=== PATIENT | male | born 1960 | race Caucasian/White ===

== ENCOUNTER → 2017-01-24 | Outpatient (CLI) | payer OTHER ==
--- NOTE | 2017-01-24 14:48 | DIREP ---
PROCEDURE:XRAY KNEE 1-2 VWS-RT COMPARISON:None. INDICATIONS:RIGHT KNEE PAIN FINDINGS: BONES:Normal. JOINTS:Normal. SOFT TISSUES:Calcification anterior to the proximal patellar tendon and lower patella. OTHER:No additional findings. CONCLUSION: 1. Soft tissue calcifications in the anterior knee may represent bursal calcifications. 2. No osseous abnormalities. Dictated by: New Saenz M.D. on 01/24/2017 at 02:40 PM
== END | disposition home or self-care (01) ==
LOC: RAD 08:44
PROVIDERS: ATTEND Nurse Practitioner Family
DX: M71.461 Calcium deposit in bursa, right knee (principal)
CPT/HCPCS: 73560

== ENCOUNTER → 2017-02-01 | Outpatient (CLI) | payer OTHER ==
--- NOTE | 2017-02-01 13:26 | DIREP ---
PROCEDURE:MRI JOINT LOWER EXTREMITY-RT W/O COMPARISON:[facility], CR, XRAY KNEE 1-2 VWS-RT, 01/24/2017, 02:04 PM. INDICATIONS:KNEE PAIN TECHNIQUE:A complete multi-planar MRI was performed. FINDINGS: PATELLOFEMORAL:There is prepatellar irregular focus of high signal with surrounding low peripheral signal measuring 2.6 x 1.8 x 0.8 cm. These are consistent with the calcification seen in the prepatellar soft tissues along the inferior margin of the patella. It appears separate from the patella and patellar tendons. This could represent a region of fat necrosis or calcific bursitis. This full-thickness cartilage loss along the inferior midline trochlea surface with intermediate grade cartilage thinning involving the vertical ridge of the patella. The extensor mechanism and patellofemoral ligaments appear normal. CRUCIATE LIGAMENTS:Normal. COLLATERAL LIGAMENTS:Normal. MENISCI:Normal. MEDIAL COMPARTMENT:Normal hyaline cartilage. LATERAL COMPARTMENT :Normal hyaline cartilage. BONES:Normal. OTHER:No joint effusion or Ray cyst. CONCLUSION: 1. There is a prepatellar focus of low and high signal corresponding to calcification seen in the prepatellar soft tissues on the prior radiograph. Findings are consistent with either calcific bursitis or prepatellar fat necrosis. 2. Mild patellofemoral chondromalacia. 3. No meniscal tear. Dictated by: Caleb Rey MD on 02/01/2017 at 12:35 PM
== END | disposition home or self-care (01) ==
LOC: RAD 08:23
PROVIDERS: ATTEND Orthopaedic Surgery
DX: M22.41 Chondromalacia patellae, right knee (principal); M25.861 Other specified joint disorders, right knee
CPT/HCPCS: 73721

== ENCOUNTER → 2018-10-04 | Outpatient (CLI) | payer OTHER ==
[2018-10-04 19:02] LABS: HEMOGLOBIN 14.2 g/dL (13.9-16.3); MEAN CELL HGB 29.4 pg (26-34); MEAN CELL HGB CONCENTRATION 32.5 g/dL (33-37); MEAN CORP VOLUME 90.5 fL (78-100); MEAN PLATELET VOLUME 9.8 fL (7.8-11.0); RED CELL DISTRIBUTION WIDTH 13.8 % (11.5-14.5); WHITE BLOOD CELL 5.6 10^3/uL (4.5-11.0)
[2018-10-04 19:46] LABS: CALCIUM 9.2 mg/dL (8.4-10.5); CARBON DIOXIDE 26.3 mmol/L (20.0-32)
== END | disposition home or self-care (01) ==
LOC: NPLAB 17:57
PROVIDERS: ATTEND Nurse Practitioner Family
DX: Z12.5 Encounter for screening for malignant neoplasm of prostate (principal); E11.65 Type 2 diabetes mellitus with hyperglycemia; I10 Essential (primary) hypertension; E55.9 Vitamin D deficiency, unspecified
CPT/HCPCS: 36415; 80053; 80061; 82306; 83036; 83735; 84439; 84443; 84550; 85027

== ENCOUNTER → 2019-03-18 | Outpatient (CLI) | payer OTHER ==
[2019-03-18 13:12] LABS: HEMOGLOBIN 14.5 g/dL (13.9-16.3); MEAN CELL HGB 30.1 pg (26-34); MEAN CELL HGB CONCENTRATION 33.8 g/dL (33-37); MEAN PLATELET VOLUME 9.5 fL (7.8-11.0); RED CELL DISTRIBUTION WIDTH 13.9 % (11.5-14.5); WHITE BLOOD CELL 6.1 10^3/uL (4.5-11.0)
[2019-03-18 13:46] LABS: CALCIUM 9.9 mg/dL (8.4-10.5); CARBON DIOXIDE 23.1 mmol/L (20.0-32)
== END | disposition home or self-care (01) ==
LOC: NPLAB 12:32
PROVIDERS: ATTEND Nurse Practitioner Family
DX: E11.9 Type 2 diabetes mellitus without complications (principal); I10 Essential (primary) hypertension; E55.9 Vitamin D deficiency, unspecified; R11.0 Nausea
CPT/HCPCS: 36415; 80053; 80061; 82150; 82306; 83036; 83690; 84439; 84443; 85027

== ENCOUNTER → 2019-04-22 | Outpatient (CLI) | payer OTHER ==
--- NOTE | 2019-04-22 13:33 | DIREP ---
PROCEDURE:CT CHEST WITH CONTRAST TECHNIQUE:Following the intravenous administration of contrast material, axial cuts were obtained through the chest. The images were viewed at lung and soft tissue settings. Sagittal and coronal reconstructions are provided. COMPARISON:[facility], CT, CT-CTA PULMONARY ANGIOGRAM, 02/02/2013, 10:58 PM. INDICATIONS:MASS RT BREAST FINDINGS: LUNGS:Stable 0.5 cm right upper lobe and three 0.6 cm right lower lobe nodules. No infiltrate or pleural effusion. CARDIAC:Normal size heart and normal pulmonary vascularity. THORACIC AORTA:Mild calcification without dilatation. MEDIASTINUM/BASSAM:Small bilateral epicardial lymph nodes. No pathologic paratracheal or hilar lymph nodes. CHEST WALL:No right breast mass or pathologic adenopathy identified. LIMITED ABDOMEN:Hepatic contour nodularity and decreased density. Borderline enlarged spleen continuing multiple calcified granulomas. Mildly enlarged main portal vein. Normal adrenals BONES:Mild thoracic spondylosis. No suspicious lesions. THYROID:Normal. OTHER:No additional findings. CONCLUSION: 1. No right breast mass or pathologic adenopathy identified. 2. Stable right pulmonary nodules, unchanged since 2012, consistent with benign lesions. 3. Hepatic cirrhosis and findings suggestive of portal venous hypertension. Dictated by: Kimberlyn Trinh MD on 04/22/2019 at 01:15 PM
== END | disposition home or self-care (01) ==
LOC: RAD 10:19
PROVIDERS: ATTEND Nurse Practitioner Family
DX: N63.10 Unspecified lump in the right breast, unspecified quadrant (principal); R91.8 Other nonspecific abnormal finding of lung field; I71.2 Thoracic aortic aneurysm, without rupture; K74.69 Other cirrhosis of liver
CPT/HCPCS: 36415; 71260; 82565; Q9967

== ENCOUNTER → 2019-04-25 | Outpatient (CLI) | payer OTHER ==
--- NOTE | 2019-04-25 09:28 | DIREP ---
PROCEDURE:MAMMO BILATERAL DIAGNOSTIC COMPARISON:None. INDICATIONS:N63.10 LUMP IN THE RIGHT BREAST BREAST COMPOSITION:The breasts are almost entirely fatty. DIAGNOSTIC MAMMOGRAM: Right views [DIGITAL]: MLO and CC Left views [DIGITAL]: MLO and CC Computer Assisted Detection (CAD) was utilized. This is a male patient. Right retroareolar asymmetry with imaging appearance most compatible with gynecomastia. Left breast unremarkable. No suspicious calcifications or mass. PHYSICAL EXAMINATION:Patient reports palpable abnormality x1 month in the right retroareolar breast IMPRESSION:Right breast gynecomastia. RECOMMENDATIONS: 1. Gynecomastia can develop as a result of many conditions that disrupt estrogen/androgen balance to include hormone changes (obesity, hormone secreting neoplasms), medications which alter hormone balance or unintentional estrogen ingestion. 2. Findings and recommendations were discussed with patient. OVERALL FINAL ASSESSMENT:BI-RADS 2 - Benign Mammogram Dictated by: Christian Ann M.D. on 04/25/2019 at 09:22 AM
== END | disposition home or self-care (01) ==
LOC: RAD 08:49
PROVIDERS: ATTEND Nurse Practitioner Family
DX: N62 Hypertrophy of breast (principal)
CPT/HCPCS: 77066

== ENCOUNTER → 2019-04-26 | Outpatient (CLI) | payer OTHER | END | disposition home or self-care (01) | LOC: LAB 10:58 | PROVIDERS: ATTEND Nurse Practitioner Family | DX: Z12.5 Encounter for screening for malignant neoplasm of prostate (principal); N63.10 Unspecified lump in the right breast, unspecified quadrant | CPT/HCPCS: 36415; 84146; 84153 ==

== ENCOUNTER → 2020-02-12 | Outpatient (CLI) | payer OTHER ==
--- NOTE | 2020-02-12 14:50 | DIREP ---
PROCEDURE:CHEST 2 VIEWS COMPARISON:[facility], CHEST 1 VIEW, 02/04/2020. [facility], CT, CT CHEST W/CONTRAST, 04/22/2019, 11:55 AM. INDICATIONS:J18.9 PNEUMONIA FINDINGS: LUNGS/PLEURA:Ill-defined hazy infiltrates present in the lateral right and left lungs. No other significant pulmonary parenchymal abnormalities. No effusions. VASCULATURE:Normal. Unremarkable pulmonary vasculature. CARDIAC:Normal. No cardiac silhouette abnormality or cardiomegaly. MEDIASTINUM:Normal. No visible mass or adenopathy. BONES:Normal. No fracture or visible bony lesion. OTHER:Negative. CONCLUSION:Ill-defined hazy infiltrates in the lateral right and left lungs. Dictated by: Sincere Rosales M.D. on 02/12/2020 at 02:45 PM
== END | disposition home or self-care (01) ==
LOC: RAD 14:25
PROVIDERS: ATTEND Nurse Practitioner Family
DX: J18.9 Pneumonia, unspecified organism (principal); R91.8 Other nonspecific abnormal finding of lung field
CPT/HCPCS: 71046

== ENCOUNTER → 2020-02-14 | Outpatient (CLI) | payer OTHER ==
[2020-02-14 13:42] LABS: MEAN CORP HGB 28.4 pg (26-34); RED CELL DISTRIBUTION WIDTH 15.6 % (11.5-14.5)
[2020-02-14 13:52] LABS: CALCIUM 8.8 mg/dL (8.4-10.5); CARBON DIOXIDE 22.5 mmol/L (20.0-32)
== END | disposition home or self-care (01) ==
LOC: NPLAB 13:22
PROVIDERS: ATTEND Nurse Practitioner Family
DX: E11.65 Type 2 diabetes mellitus with hyperglycemia (principal); J12.1 Respiratory syncytial virus pneumonia
CPT/HCPCS: 36415; 80053; 83036; 83735; 85027; 86140

== ENCOUNTER → 2020-02-17 | Outpatient (CLI) | payer OTHER ==
--- NOTE | 2020-02-19 18:53 | ECHO ---
DATE OF SERVICE: 02/17/2020 A 60-year-old male post-ARDS following COVID-19 infection, rheumatoid arthritis, bilateral pleural effusions. Assess for cardiomyopathy and assess for pulmonary hypertension. PRIMARY PROVIDER: Ellie Mandel. Mitral valve shows normal motion, mild reversal of E to A ratio and grade 1 diastolic dysfunction. Aorta shows mild sclerosis, mild gradient across the aorta, adequate aortic valve opening of 3.28 square cm. Tricuspid normal motion. Right ventricle appears to be normal. There is no significant thickening of anterior right ventricular wall of the right ventricular sizes appear to be enlarged. Right atrium is normal. Left atrium is mildly enlarged in 4 chamber view to 4.73 cm. Left ventricle appears to be normal in size. Most of the M-MODE study is suboptimal and most of the information obtained is on 2D and it is a banana shaped ventricle and it is a long estimation of the end-diastolic and end-systolic dimension, but it has been calculated 4.68 cm, end diastolic dimension 3.49 cm, end-systolic dimension, normal wall thickness motion contraction, ejection fraction of 50-55%, mild increase in end-diastolic volume. IVC is normal. Small left pleural effusion is documented. No thrombi in any other cardiac chambers. Hence picture consistent with grade 1 diastolic dysfunction, intact LV systolic function, left atrial enlargement. No evidence of any significant pulmonary hypertension and left pleural effusion. Laxmichand MD Rosa Isela DR: MAYITO/poly JOB# [id number]
== END | disposition home or self-care (01) ==
LOC: RT 15:51
PROVIDERS: ATTEND Nurse Practitioner Family
DX: U07.1 COVID-19 (principal); J12.1 Respiratory syncytial virus pneumonia; I35.8 Other nonrheumatic aortic valve disorders; R94.31 Abnormal electrocardiogram [ECG] [EKG]
CPT/HCPCS: 93306

== ENCOUNTER → 2020-02-19 | Outpatient (CLI) | payer OTHER ==
--- NOTE | 2020-02-19 18:05 | DIREP ---
PROCEDURE:CT CHEST WITH CONTRAST COMPARISON:[facility], CT, CT CHEST W/CONTRAST, 04/22/2019, 11:55 AM. [facility], CR, XRAY CHEST 2 VWS, 02/12/2020, 02:30 PM. INDICATIONS:J90 PLEURAL EFFUSION TECHNIQUE:Helical sections through the chest were performed from the lung apices through the diaphragms with IV contrast. Sagittal and coronal reconstructions are obtained from source images. FINDINGS: LUNGS:Increased interstitial markings periphery both lungs with some patchy areas of increased ground-glass opacity lingula and middle lobes on both sides. There is some dependent atelectasis or peripheral interstitial disease developing posteriorly on both sides. Previously described pulmonary nodules in the superior segment of the right lower lobe show interval enlargement on the more anterior 1, now 7.5 mm compared with 6.2 mm in April of 2019 (series 4/image 19). The more posterior pleural base nodule remains approximately 8 mm in diameter. PLEURA:Pleural thickening with some associated septal thickening in the periphery of the lungs, no pleural effusion CARDIAC:No change in heart size MEDIASTINUM:Normal. No mass or adenopathy. BASSAM:Normal. No mass or adenopathy. AORTA:Normal. No aneurysm. CHEST WALL:Normal. No mass or axillary adenopathy. LIMITED ABDOMEN:Interval abdominal ascites with nodular ventral surface of the liver. Prominent spleen with Granulomata BONES:No compression fractures OTHER:Negative. CONCLUSION:Bilateral increased pulmonary markings, primarily peripheral, in lingula and middle lobe on both sides. No pleural effusions. No focal or rounded ground-glass opacities to suggest COVID-19. These pulmonary features are nonspecific and not typical of pandemic related pneumonia. Slight interval enlargement of lower lobe nodule right, now 7.5 mm in maximum diameter. Interval abdominal ascites. Dictated by: Serina Damon MD on 02/19/2020 at 05:47 PM
== END | disposition home or self-care (01) ==
LOC: RAD 16:46
PROVIDERS: ATTEND Nurse Practitioner Family
DX: J90 Pleural effusion, not elsewhere classified (principal)
CPT/HCPCS: 71260; Q9965

== ENCOUNTER → 2020-03-30 | Outpatient (CLI) | payer OTHER ==
--- NOTE | 2020-03-30 16:11 | DIREP ---
PROCEDURE:CT CHEST W/O COMPARISON:[facility], CT, CT CHEST W/CONTRAST, 02/19/2020, 05:04 PM. INDICATIONS:U07.1 COVID 19 DISEASE TECHNIQUE:Helical sections through the chest were performed from the lung apices through the diaphragms without IV contrast. Sagittal and coronal reconstructions are obtained from source images. FINDINGS: LUNGS:Small noncalcified nodules in the right lower lobe measuring 7.5 mm and 8 mm in diameter. These are stable when compared with the previous CT scan of the abdomen dated Feb 19 2020. Slight prominence of interstitial markings in the right middle lobe and lingula. These findings are much improved when compared with the previous study dated Feb 19 2020 and could represent resolving interstitial pneumonia and/or edema. PLEURA:Normal. No mass or effusion. CARDIAC:Normal. No enlargement, pericardial thickening, or significant calcification. MEDIASTINUM:Normal. No mass or adenopathy. BASSAM:Normal. No mass or adenopathy. AORTA:Normal. No aneurysm. CHEST WALL:Normal. No mass or axillary adenopathy. LIMITED ABDOMEN:Cirrhotic liver and splenomegaly with scattered granulomatous calcifications in the spleen. Interval resolution of abdominal ascites since Feb 19 2020. BONES:Mild degenerative changes in the thoracic spine. OTHER:Negative. CONCLUSION: 1. Dramatic improvement in interstitial infiltrates since the previous study dated Feb 19 2020 with only minimal residual interstitial infiltrates in the right middle lobe and lingula which could represent resolving interstitial pneumonia or edema. 2. Right lower lobe nodules are unchanged when compared with previous CT scan of the chest performed on Feb 19 2020. They may only represent noncalcified granulomas but metastases cannot be unequivocally excluded. Continued follow-up CTs are recommended at six-month intervals. 3. Cirrhotic liver with splenomegaly and granulomatous calcifications in the spleen. 4. Mild degenerative changes in the thoracic spine. Dictated by: Juve Larkin M.D. on 03/30/2020 at 02:40 PM
--- NOTE | 2020-03-30 16:20 | DIREP ---
PROCEDURE:CT ABDOMEN W/ CONTRAST COMPARISON:[facility], CT, CT CHEST W/CONTRAST, 02/19/2020, 05:04 PM. INDICATIONS:R18.8 ASCITES TECHNIQUE:Axial images were created through the abdomen with non-ionic intravenous contrast material. No oral contrast was administered. Sagittal and coronal reconstructions were performed from source images. FINDINGS: LUNG BASES:Visualized portions of the lower lobes of both lungs are normal; however, CT scan of the chest performed on the same day demonstrates noncalcified nodules in the superior segment of the right lower lobe and faint interstitial infiltrates in the middle lobe and lingula which are much improved when compared with the previous study dated Feb 19 2020. LIVER:Prominence of the left lobe of the liver with scalloped margins in the liver suggesting cirrhosis. BILIARY:Normal. No visible dilatation or calcification. PANCREAS:Normal. No lesion, fluid collection, ductal dilatation, or atrophy. SPLEEN:Mild splenomegaly with scattered calcified granulomas. ADRENALS:Normal. No mass or enlargement. URINARY TRACT:Punctate 1 mm diameter nonobstructing calcifications in upper and lower pole calices of the right and left kidneys. No ureterolithiasis or ureteral obstruction.. AORTA/VASCULAR:Normal. No aneurysm. RETROPERITONEUM:Normal. No mass or adenopathy. BOWEL/MESENTERY:Normal. There is no intestinal obstruction, free fluid, free air or mesenteric inflammatory changes. Normal appendix. ABDOMINAL WALL:Normal. No mass or hernia. PELVIC ORGANS:The pelvis was not imaged. BONES:Normal for age. No bony lesion or acute fracture. OTHER:No ascites. CONCLUSION: 1. Interval resolution of abdominal ascites since the previous CT scan of the chest dated Feb 19 2020. 2. Cirrhotic liver with splenomegaly and scattered granulomatous calcifications in the spleen. 3. Punctate nonobstructing calcifications in upper and lower pole calices of both kidneys with no ureterolithiasis or ureteral obstruction. 4. Interval improvement in reticular infiltrates in the right middle lobe and lingula since the previous CT scan of the chest dated Feb 19 2020. These are better demonstrated on today's CT scan of the chest. See that report. 5. CT scan of the abdomen is otherwise normal. Dictated by: Juve Larkin M.D. on 03/30/2020 at 04:11 PM
== END | disposition home or self-care (01) ==
LOC: RAD 09:43
PROVIDERS: ATTEND Nurse Practitioner Family
DX: R16.1 Splenomegaly, not elsewhere classified (principal); N28.89 Other specified disorders of kidney and ureter; R91.8 Other nonspecific abnormal finding of lung field; K74.60 Unspecified cirrhosis of liver; D73.89 Other diseases of spleen; J18.9 Pneumonia, unspecified organism; R18.8 Other ascites
CPT/HCPCS: 36415; 71250; 74160; 82565; Q9967

== ENCOUNTER → 2020-04-06 | Outpatient (CLI) | payer OTHER ==
[2020-04-08 05:17] LABS: HEP A AB, IgM Negative (Negative)
== END | disposition home or self-care (01) ==
LOC: LAB 14:32
PROVIDERS: ATTEND Nurse Practitioner Family
DX: R94.5 Abnormal results of liver function studies (principal)
CPT/HCPCS: 36415; 80074; 80076; 86318; 86592

== ENCOUNTER → 2020-04-15 | Outpatient (CLI) | payer OTHER ==
[2020-04-15 17:09] LABS: EOSINOPHIL # 0.2 10^3/uL (0.0-0.2); EOSINOPHIL % 4.2 % (0.0-5.0); LYMPHOCYTES # 1.05 10^3/uL1 (1.0-4.8); LYMPHOCYTES % 25.9 % (24.0-44.0); MEAN CORP HGB 27.7 pg (26-34); MONOCYTES # 0.3 10^3/uL (0.3-0.8); MONOCYTES % 7.2 % (5.0-12.0); NEUTROPHIL # 2.5 10^3/uL (1.8-7.7); NEUTROPHILS % 61.7 % (41.0-85.0); PLATELET COUNT 177 10^3/uL (150-400); RED CELL DISTRIBUTION WIDTH 13.8 % (11.5-14.5)
[2020-04-15 17:35] LABS: CALCIUM 9.8 mg/dL (8.4-10.5); CARBON DIOXIDE 25.6 mmol/L (20.0-32)
== END | disposition home or self-care (01) ==
LOC: LAB 16:19
PROVIDERS: ATTEND Nurse Practitioner Family
DX: Z12.5 Encounter for screening for malignant neoplasm of prostate (principal); E11.9 Type 2 diabetes mellitus without complications; R79.9 Abnormal finding of blood chemistry, unspecified; I10 Essential (primary) hypertension; E55.9 Vitamin D deficiency, unspecified
CPT/HCPCS: 36415; 80053; 80061; 82043; 82306; 83036; 84153; 84165; 84439; 84443; 85025

== ENCOUNTER → 2020-06-29 | Outpatient (CLI) | payer OTHER ==
[2020-06-29 08:53] LABS: MEAN CORP HGB 28.5 pg (26-34); RED CELL DISTRIBUTION WIDTH 14.3 % (11.5-14.5)
[2020-06-29 09:31] LABS: CALCIUM 9.3 mg/dL (8.4-10.5); CARBON DIOXIDE 26.1 mmol/L (20.0-32)
== END | disposition home or self-care (01) ==
LOC: NPLAB 08:39
PROVIDERS: ATTEND Nurse Practitioner Family
DX: Z12.5 Encounter for screening for malignant neoplasm of prostate (principal); E11.65 Type 2 diabetes mellitus with hyperglycemia; D51.9 Vitamin B12 deficiency anemia, unspecified; I10 Essential (primary) hypertension; E55.9 Vitamin D deficiency, unspecified
CPT/HCPCS: 36415; 80053; 82306; 82607; 83036; 84153; 85027

== ENCOUNTER → 2020-10-06 | Outpatient (CLI) | payer OTHER | END | disposition home or self-care (01) | LOC: NPLAB 09:37 | PROVIDERS: ATTEND Nurse Practitioner Family | DX: U07.1 COVID-19 (principal) | CPT/HCPCS: 36415 ==

== ENCOUNTER → 2020-10-15 | Outpatient (CLI) | payer OTHER ==
--- NOTE | 2020-10-15 12:05 | DIREP ---
PROCEDURE:CHEST 2 VIEWS COMPARISON:[facility], CR, XRAY CHEST 2 VWS, 02/12/2020, 02:30 PM. INDICATIONS:COUGH, CP FINDINGS: LUNGS/PLEURA:Mild interstitial prominence throughout the bilateral hemithoraces may be accentuated by overall low lung volumes. There is subtle blunting of the right costophrenic angle without sizable pleural effusion on the lateral view. The overall degree of aeration of the lungs is similar to potentially slightly improved from the previous study. VASCULATURE:No pulmonary vascular congestion. CARDIAC:The heart is not significantly enlarged. MEDIASTINUM:Mediastinal contours appear within acceptable limits. BONES:Degenerative changes of the spine. OTHER:Negative. CONCLUSION: 1. Low lung volumes with mild interstitial prominence throughout the bilateral hemithoraces which may be accentuated by the low lung volumes. The overall degree of aeration is similar to potentially slightly improved from the previous study. No acute cardiopulmonary abnormality is suspected. Dictated by: Leonel Singh M.D. On 10/15/2020 at 12:01 PM
[2020-10-15 12:18] LABS: MEAN CORP HGB 28.3 pg (26-34); RED CELL DISTRIBUTION WIDTH 13.6 % (11.5-14.5)
[2020-10-15 12:31] LABS: CALCIUM 8.9 mg/dL (8.4-10.5); CARBON DIOXIDE 23.7 mmol/L (20.0-32)
--- NOTE | 2020-10-15 13:16 | DIREP ---
PROCEDURE:CTA - CHEST (NON CORONARY) COMPARISON:[facility], CT, CT-CTA PULMONARY ANGIOGRAM, 02/02/2013, 10:58 PM. [facility], CT, CT CHEST W/CONTRAST, 04/22/2019, 11:55 AM. [facility], CT, CT CHEST W/O, 03/30/2020, 10:56 AM. INDICATIONS:R06.02 SHORTNESS OF BREATH TECHNIQUE:After obtaining the patient's consent, CTA images were obtained without and with non-ionic intravenous contrast material. Multi-planar MIP/3-D images were created to optimize visualization of vascular anatomy. FINDINGS: VASCULATURE:Normal pulmonary arteries, no emboli THORACIC AORTA:Normal. LUNGS:2 pulmonary nodules in the superior segment on the right shows slight interval enlargement since April 2019. Peripheral nodule upper lobe interior right today's 5 mm in diameter, showing slight interval enlargement since 04/22/2019 (series 7/image 61) but is essentially stable when compared with the 2013 exam. Nodule against the major fissure in the apex of the superior segment today measures 6.8 mm in diameter compared with 5.5 mm 04/22/2019. There is little change when compared with 2013 Slightly more posterior nodule against the posterior pleura measures 6.9 mm short axis diameter on today's exam compared with 5.3 mm 04/22/2019 (series 7/image 66 and 65). There is little change when compared with 2013 MEDIASTINUM/BASSAM:Shotty mediastinal nodes, unchanged.. CARDIAC:Normal. PLEURA:Normal. CHEST WALL:Normal. LIMITED ABDOMEN:Splenic granulomata. BONES:Normal. OTHER:Normal. CONCLUSION:No PE. Normal thoracic aorta. Small right-sided pulmonary nodules essentially unchanged since 2012. Dictated by: Serina Damon MD on 10/15/2020 at 01:01 PM
== END | disposition home or self-care (01) ==
LOC: RAD 11:17
PROVIDERS: ATTEND Nurse Practitioner Family
DX: R91.8 Other nonspecific abnormal finding of lung field (principal); R05 Cough; R06.02 Shortness of breath; R07.9 Chest pain, unspecified; M47.814 Spondylosis without myelopathy or radiculopathy, thoracic region; D73.89 Other diseases of spleen
CPT/HCPCS: 36415; 71046; 71275; 80053; 84145; 85027; 85379; 85651; 86140; 87633; Q9965

== ENCOUNTER → 2020-10-20 | Outpatient (CLI) | payer OTHER ==
[2020-10-20 12:19] LABS: MEAN CORP HGB 28.3 pg (26-34); RED CELL DISTRIBUTION WIDTH 13.9 % (11.5-14.5)
[2020-10-20 12:50] LABS: CALCIUM 9.1 mg/dL (8.4-10.5); CARBON DIOXIDE 25.5 mmol/L (20.0-32)
== END | disposition home or self-care (01) ==
LOC: NPLAB 11:31
PROVIDERS: ATTEND Internal Medicine Gastroenterology
DX: K75.81 Nonalcoholic steatohepatitis (NASH) (principal)
CPT/HCPCS: 36415; 80053; 85027; 85610

== ENCOUNTER → 2020-10-22 | Outpatient (CLI) | payer OTHER ==
--- NOTE | 2020-10-22 12:21 | DIREP ---
PROCEDURE:US ABDOMEN LIMITED (SINGLE ORGAN - QUAD) COMPARISON:[facility], CT, CT ABDOMEN W/CONTRAST, 03/30/2020, 10:59 AM. INDICATIONS:LIVER CIRRHOSIS SECONDARY TO ALFRED TECHNIQUE:High resolution sonographic examination was performed of the abdomen. FINDINGS: PANCREAS:The imaged pancreas appears grossly unremarkable. The pancreatic tail is largely obscured by overlying bowel gas. LIVER:Coarsened and increased hepatic echotexture with hepatic surface lobularity, consistent with reported hepatic cirrhosis. Surface lobularity is most prominent adjacent to the gallbladder fossa which can be seen on the previous CT as well. GALLBLADDER:The gallbladder is contracted. No echogenic shadowing calculi are identified. There is no overt gallbladder wall thickening. No pericholecystic fluid collections are identified. BILIARY:The common duct measures up to approximately 5 mm diameter and is within normal limits. RIGHT KIDNEY:No hydronephrosis. SPLEEN: Splenomegaly with the spleen measuring approximately 18.2 x 6.9 x 17.1 cm. OTHER:No significant ascites. CONCLUSION: 1. Hepatic cirrhosis with splenomegaly, suggesting secondary portal venous hypertension. No significant ascites. 2. Contracted gallbladder without appreciable cholelithiasis or secondary signs to suggest acute cholecystitis. Normal caliber common duct. Dictated by: GAURAV Physician on 10/22/2020 at 11:39 AM
== END | disposition home or self-care (01) ==
LOC: RAD 08:11
PROVIDERS: ATTEND Internal Medicine Gastroenterology
DX: K75.81 Nonalcoholic steatohepatitis (NASH) (principal); K74.60 Unspecified cirrhosis of liver; N32.89 Other specified disorders of bladder
CPT/HCPCS: 76705

== ENCOUNTER → 2021-03-19 | Outpatient (CLI) | payer OTHER ==
[2021-03-19 09:25] LABS: BASOPHIL % 0.5 % (0.0-0.2); EOSINOPHIL # 0.1 10^3/uL (0.0-0.2); EOSINOPHIL % 2.5 % (0.0-5.0); LYMPHOCYTES # 1.13 10^3/uL1 (1.0-4.8); LYMPHOCYTES % 27.9 % (24.0-44.0); MEAN CORP HGB 27.7 pg (26-34); MONOCYTES # 0.3 10^3/uL (0.3-0.8); MONOCYTES % 6.2 % (5.0-12.0); NEUTROPHIL # 2.5 10^3/uL (1.8-7.7); NEUTROPHILS % 62.7 % (41.0-85.0); PLATELET COUNT 171 10^3/uL (150-400); RED CELL DISTRIBUTION WIDTH 14.1 % (11.5-14.5)
[2021-03-19 10:27] LABS: CALCIUM 8.7 mg/dL (8.4-10.5); CARBON DIOXIDE 24.2 mmol/L (20.0-32)
== END | disposition home or self-care (01) ==
LOC: NPLAB 08:51
PROVIDERS: ATTEND Nurse Practitioner Family
DX: Z12.5 Encounter for screening for malignant neoplasm of prostate (principal); D51.9 Vitamin B12 deficiency anemia, unspecified; E11.65 Type 2 diabetes mellitus with hyperglycemia; E83.42 Hypomagnesemia; I10 Essential (primary) hypertension
CPT/HCPCS: 36415; 80053; 82306; 82607; 82746; 83036; 83735; 84153; 84439; 84443; 85025

== ENCOUNTER → 2021-03-22 | Outpatient (CLI) | payer OTHER ==
--- NOTE | 2021-03-23 08:18 | DIREP ---
PROCEDURE:CT CHEST WITHOUT AND WITH CONTRAST TECHNIQUE:Axial cuts were obtained through the chest. Then following the intravenous administration of contrast material, additional cuts were obtained through the chest. The images were viewed at lung and soft tissue settings. Sagittal and coronal reconstructions are provided. COMPARISON:[facility], CT, CT CHEST W/CONTRAST, 04/22/2019, 11:55 AM. [facility], CT, CTA CHEST, 10/15/2020, 12:45 PM. INDICATIONS:J12.81 PNEUMONIA DUE TO SARS-ASSOCIATED CORNAVIRUS FINDINGS: LUNGS:Stable appearance of 6 mm and 5 mm nodules in the superior segment right lower lobe series 7, image 19. Previously described nodule right upper lobe measuring 5 mm series 7, image 23 is also stable. No new nodules. Airways are well patent. PLEURA:Normal. CARDIAC:Moderate coronary artery calcifications. THORACIC AORTA:Moderately calcified. No aneurysm. MEDIASTINUM/BASSAM:Normal. CHEST WALL:Normal. LIMITED ABDOMEN:Numerous calcified granulomas in the spleen. Question nodularity to the surface contour of the liver. BONES:Osteophyte formation lower cervical spine and mildly in the thoracic spine. Plate and screws in the lower cervical spine. THYROID:Normal. OTHER:No additional findings. CONCLUSION: 1. Stable appearance of lung nodules. No further follow-up advised at this time. No new nodules. 2. Atherosclerosis. 3. Questionable cirrhosis. Dictated by: New Saenz M.D. on 03/23/2021 at 08:04 AM
== END | disposition home or self-care (01) ==
LOC: RAD 15:16
PROVIDERS: ATTEND Nurse Practitioner Family
DX: R92.8 Other abnormal and inconclusive findings on diagnostic imaging of breast (principal); J12.81 Pneumonia due to SARS-associated coronavirus; I25.10 Atherosclerotic heart disease of native coronary artery without angina pectoris; D73.89 Other diseases of spleen; M25.78 Osteophyte, vertebrae
CPT/HCPCS: 71270; Q9965

== ENCOUNTER → 2021-05-19 | Outpatient (CLI) | payer OTHER | END | disposition home or self-care (01) | LOC: NPLAB 12:52 | PROVIDERS: ATTEND Nurse Practitioner Family | DX: E07.1 Dyshormogenetic goiter (principal); D51.9 Vitamin B12 deficiency anemia, unspecified; E55.9 Vitamin D deficiency, unspecified | CPT/HCPCS: 36415; 82306; 82607; 82746; 86769 ==

== ENCOUNTER → 2021-07-19 | Outpatient (CLI) | payer OTHER | END | disposition home or self-care (01) | LOC: NPLAB 10:11 | PROVIDERS: ATTEND Internal Medicine | DX: R11.0 Nausea (principal); Z20.822 Contact with and (suspected) exposure to COVID-19 | CPT/HCPCS: 87426 ==

== ENCOUNTER → 2021-11-10 | Outpatient (CLI) | payer OTHER | END | disposition home or self-care (01) | LOC: NPLAB 09:11 | PROVIDERS: ATTEND Nurse Practitioner Family | DX: Z20.822 Contact with and (suspected) exposure to COVID-19 (principal) | CPT/HCPCS: 87426; 87633 ==

== ENCOUNTER → 2022-01-13 | Outpatient (CLI) | payer OTHER ==
[2022-01-13 15:34] LABS: BASOPHIL % 0.6 % (0.0-0.2); EOSINOPHIL # 0.1 10^3/uL (0.0-0.2); EOSINOPHIL % 1.6 % (0.0-5.0); LYMPHOCYTES # 1.05 10^3/uL1 (1.0-4.8); LYMPHOCYTES % 21.4 % (24.0-44.0); MEAN CORP HGB 28.7 pg (26-34); MONOCYTES # 0.3 10^3/uL (0.3-0.8); MONOCYTES % 6.5 % (5.0-12.0); NEUTROPHIL # 3.4 10^3/uL (1.8-7.7); NEUTROPHILS % 69.9 % (41.0-85.0); PLATELET COUNT 184 10^3/uL (150-400); RED CELL DISTRIBUTION WIDTH 13.1 % (11.5-14.5)
[2022-01-13 15:55] LABS: CARBON DIOXIDE 26.2 mmol/L (20.0-32)
== END | disposition home or self-care (01) ==
LOC: NPLAB 15:23
PROVIDERS: ATTEND Nurse Practitioner Family
DX: I10 Essential (primary) hypertension (principal); D51.0 Vitamin B12 deficiency anemia due to intrinsic factor deficiency; E11.65 Type 2 diabetes mellitus with hyperglycemia; N40.0 Benign prostatic hyperplasia without lower urinary tract symptoms; J12.81 Pneumonia due to SARS-associated coronavirus; E55.9 Vitamin D deficiency, unspecified
CPT/HCPCS: 36415; 80053; 80061; 82306; 82607; 82746; 83036; 84153; 85025

== ENCOUNTER → 2022-08-16 | Outpatient (CLI) | payer OTHER ==
[2022-08-16 18:20] LABS: BASOPHIL % 0.4 % (0.0-0.2); EOSINOPHIL # 0.1 10^3/uL (0.0-0.2); EOSINOPHIL % 1.6 % (0.0-5.0); LYMPHOCYTES # 1.32 10^3/uL1 (1.0-4.8); MEAN CORP HGB 28.1 pg (26-34); MONOCYTES # 0.4 10^3/uL (0.3-0.8); MONOCYTES % 7.5 % (5.0-12.0); NEUTROPHIL # 3.3 10^3/uL (1.8-7.7); NEUTROPHILS % 64.5 % (41.0-85.0); PLATELET COUNT 188 10^3/uL (150-400)
== END | disposition home or self-care (01) ==
LOC: NPLAB 16:49
PROVIDERS: ATTEND Nurse Practitioner Family
DX: Z12.5 Encounter for screening for malignant neoplasm of prostate (principal); I10 Essential (primary) hypertension; E11.9 Type 2 diabetes mellitus without complications; Z82.0 Family history of epilepsy and other diseases of the nervous system
CPT/HCPCS: 36415; 80053; 80061; 83036; 84153; 84439; 84443; 85025

== ENCOUNTER → 2022-10-05 | Outpatient (CLI) | payer OTHER ==
--- NOTE | 2022-10-05 09:54 | DIREP ---
PROCEDURE:US ABDOMEN LIMITED (SINGLE ORGAN - QUAD) COMPARISON:CT, CT CHEST W/CONTRAST, 04/22/2019, 11:[address], CT CHEST W/O, 03/30/2020, 10:[address], CT CHEST W/CONTRAST, 02/19/2020, 05:04 PM. [facility], CT, CT CHEST W&W/O, 03/22/2021, 03:31 PM. [facility], US, US ABDOMEN LIMITED(SINGLE ORGAN-QUAD), 10/22/2020, 08:32 AM. [facility], CT, CTA CHEST, 10/15/2020, 12:45 PM. [facility], CT, CT ABDOMEN W/CONTRAST, 03/30/2020, 10:59 AM. INDICATIONS:R94.5 ABNORMAL RESULTS OF LIVER FUNCTION STUDIES TECHNIQUE:High resolution sonographic examination was performed of the abdomen. FINDINGS: PANCREAS:Not well visualized due to bowel gas shadowing. LIVER:Coarse increased echotexture. No focal lesion identified. Normal hepatopetal portal venous flow direction reported. GALLBLADDER:Phrygian cap. Dependent sludge. No shadowing stones, gallbladder wall thickening or pericholecystic fluid. BILIARY:No biliary duct dilatation. RIGHT KIDNEY:Normal. No hydronephrosis. SPLEEN: Enlarged. Calcified granulomas. OTHER:Negative. No ascites identified. CBD:0.3 cm GALLBLADDER WALL: 0.1 cm LIVER: 16.4 cm in length. RIGHT KIDNEY: 11.2 x 5.3 x 6.7 cm SPLEEN: 16.4 x 15.2 x 8.1 cm, Volume: 1056.0 ml CONCLUSION: 1. Hepatic cirrhosis and splenomegaly. 2. No cholelithiasis, acute cholecystitis or biliary duct obstruction. Dictated by: GAURAV Physician on 10/05/2022 at 09:21 AM ac
== END | disposition home or self-care (01) ==
LOC: RAD 08:36
PROVIDERS: ATTEND Nurse Practitioner Family
DX: R16.1 Splenomegaly, not elsewhere classified (principal); K74.60 Unspecified cirrhosis of liver; L92.8 Other granulomatous disorders of the skin and subcutaneous tissue; R94.5 Abnormal results of liver function studies
CPT/HCPCS: 76705; 93976

== ENCOUNTER → 2022-10-05 | Outpatient (CLI) | payer OTHER | END | disposition home or self-care (01) | LOC: NPLAB 10:25 | PROVIDERS: ATTEND Nurse Practitioner Family | DX: N40.0 Benign prostatic hyperplasia without lower urinary tract symptoms (principal); J12.81 Pneumonia due to SARS-associated coronavirus | CPT/HCPCS: 84153 ==

== ENCOUNTER → 2022-12-02 | Outpatient (CLI) | payer OTHER ==
--- NOTE | 2022-12-02 19:19 | PCM.ECHO ---
APPROVED REPORT EXAM: Comprehensive 2D, Doppler, and color-flow Echocardiogram. Patient Location: OUT-PATIENT Indications Cardiac clearance 2D Dimensions LVOT Diameter 2.04 (1.8-2.4cm) LVEF(%) 61.92 (>50%) M-Mode Dimensions RVDd 1.20 (2.1-3.2cm) Left Atrium(MM) 4.35 (2.5-4.0cm) IVSd 0.90 (0.7-1.1cm) Aortic Root 2.55 (2.2-3.7cm) LVDd 5.90 (4.0-5.6cm) Aortic Cusp Exc 1.75 (1.5-2.0cm) PWd 0.85 (0.7-1.1cm) MV EPSS 1.32 (<0.5cm) IVSs 2.65 cm FS (%) 37.00 % LVDs 3.70 (2.0-3.8cm) ESV(Teich) 59.43 ml PWs 1.50 cm LVEF(%) 66.10 (>50%) Volumes Biplane 2D LV Volumes Biplane 2D LA Volumes LVEDv A4C 90.54 mL LA ESV Index LVESv A4C 34.48 mL Aortic Valve AoV Peak Freddy. 1.45 m/s AoV VTI 23.60 cm AO Peak GR. 8.75 mmHg AO Mean GR. 4.05 mmHg LVOT VTI 20.33 cm LVOT Peak Freddy. 0.98 m/s RUSTY(VTI)/BSA 2.82 cm2/m2 RUSTY (VTI) 2.82 cm2 Mitral Valve MV E Velocity 1.10m/s MR Peak Gr. 15.40mmHg MV A Velocity 1.20m/s Pulmonary Valve PV Peak Velocity 0.70m/s PV Peak Grad. 2.10mmHg RVOT VTI 18.31cm Tricuspid Valve TR P. Velocity 1.50m/s RAP ESTIMATE 10.00mmHg TR Peak Gr. 9.15mmHg RVSP 19.15mmHg LEFT VENTRICLE The left ventricle is normal size. The left ventricular systolic function is normal. The left ventricular ejection fraction is within the normal range. There is normal left ventricular wall thickness. There is normal LV segmental wall motion. There is no ventricular septal defect visualized. No left ventricle thrombus noted on this study. LVEF is 55-60%. RIGHT VENTRICLE The right ventricle is normal size. The right ventricular systolic function is normal. There is normal right ventricular wall thickness. ATRIA The left atrium size is normal. The right atrium size is normal. The interatrial septum is intact with no evidence for an atrial septal defect. AORTIC VALVE The aortic valve is normal in structure. There is no aortic valvular stenosis. No aortic regurgitation is present. There is no aortic valvular vegetation. MITRAL VALVE The mitral valve is normal in structure. There is no mitral valve stenosis. Mild mitral regurgitation. There is no evidence of mitral valve vegetations. TRICUSPID VALVE The tricuspid valve is normal in structure. There is no tricuspid valve stenosis. Mild tricuspid regurgitation. There is no tricuspid valve vegetations. PULMONIC VALVE Pulmonic valve is not well visualized. There is no pulmonic valvular stenosis. There is no pulmonic valvular regurgitation. GREAT VESSELS The aortic root is normal in size. Pulmonary artery is not well visualized. Aortic arch is not well visualized. The IVC is normal in size and collapses >50% with inspiration. PERICARDIUM There is no pericardial effusion. There is no pleural effusion. Other Information Study Quality: Fair <Conclusion> The left ventricular systolic function is normal. LVEF is 55-60%. Mild mitral regurgitation. Mild tricuspid regurgitation. Electronically signed by : NEIL GARY. 12/02/2022 19:19:03
== END | disposition home or self-care (01) ==
LOC: RAD 07:59
PROVIDERS: ATTEND Internal Medicine Interventional Cardiology
DX: Z01.810 Encounter for preprocedural cardiovascular examination (principal); I08.0 Rheumatic disorders of both mitral and aortic valves
CPT/HCPCS: 93306

== ENCOUNTER → 2023-04-03 | Outpatient (CLI) | payer OTHER ==
[2023-04-03 12:10] LABS: BASOPHIL % 0.3 % (0.0-0.2); EOSINOPHIL # 0.1 10^3/uL (0.0-0.2); EOSINOPHIL % 2.2 % (0.0-5.0); LYMPHOCYTES # 1.44 10^3/uL1 (1.0-4.8); LYMPHOCYTES % 24.7 % (24.0-44.0); MEAN CORP HGB 26.9 pg (26-34); MONOCYTES # 0.5 10^3/uL (0.3-0.8); MONOCYTES % 9.2 % (5.0-12.0); NEUTROPHIL # 3.7 10^3/uL (1.8-7.7); NEUTROPHILS % 63.6 % (41.0-85.0); PLATELET COUNT 204 10^3/uL (150-400); RED CELL DISTRIBUTION WIDTH 14.4 % (11.5-14.5)
[2023-04-03 12:42] LABS: CARBON DIOXIDE 27.2 mmol/L (20.0-32)
== END | disposition home or self-care (01) ==
LOC: NPLAB 11:50
PROVIDERS: ATTEND Nurse Practitioner Family
DX: C61 Malignant neoplasm of prostate (principal); E83.42 Hypomagnesemia; D51.0 Vitamin B12 deficiency anemia due to intrinsic factor deficiency; E11.9 Type 2 diabetes mellitus without complications; I10 Essential (primary) hypertension
CPT/HCPCS: 36415; 80053; 82306; 82607; 82746; 83036; 83735; 84153; 85025

== ENCOUNTER → 2023-05-16 | Outpatient (CLI) | payer OTHER | END | disposition home or self-care (01) | LOC: NPLAB 09:13 | PROVIDERS: ATTEND Nurse Practitioner Family | DX: C61 Malignant neoplasm of prostate (principal) | CPT/HCPCS: 36415; 84153 ==

== ENCOUNTER → 2023-11-08 | Outpatient (CLI) | payer OTHER ==
[2023-11-08 11:25] LABS: BASOPHIL % 0.4 % (0.0-0.2); EOSINOPHIL # 0.1 10^3/uL (0.0-0.2); EOSINOPHIL % 1.4 % (0.0-5.0); HEMATOCRIT(ML) 43.6 % (37.0-53.0); HEMOGLOBIN 14.3 g/dL (13.9-16.3); LYMPHOCYTES # 1.09 10^3/uL1 (1.0-4.8); LYMPHOCYTES % 21.7 % (24.0-44.0); MEAN CORP HGB 27.7 pg (26-34); MEAN CORP HGB CONCENTRATION 32.8 g/dL (33-36.5); MEAN CORP VOLUME 84.5 fL (78-100); MONOCYTES # 0.4 10^3/uL (0.3-0.8); NEUTROPHIL # 3.5 10^3/uL (1.8-7.7); NEUTROPHILS % 69.5 % (41.0-85.0); PLATELET COUNT 168 10^3/uL (150-400); RED BLOOD CELL 5.16 10^6/uL (4.50-5.90); RED CELL DISTRIBUTION WIDTH 14.3 % (11.5-14.5)
[2023-11-08 11:26] LABS: +ADD MANUAL DIFF(NO CHRG) NO
[2023-11-08 12:00] LABS: ALBUMIN(ML) 3.7 g/dL (3.4-5.0); ALBUMIN/GLOBULIN RATIO 0.925; ANION GAP 10.6; BUN/CREATININE RATIO 12.38 (10.0-20.0); CALCIUM 9.3 mg/dL (8.4-10.5); CARBON DIOXIDE 30.7 mmol/L (20.0-32); CREATININE SERUM 1.13 mg/dL (0.59-1.40); POTASSIUM 4.3 mmol/L (3.6-5.2)
== END | disposition home or self-care (01) ==
LOC: NPLAB 11:01
PROVIDERS: ATTEND Nurse Practitioner Family
DX: C61 Malignant neoplasm of prostate (principal); E11.41 Type 2 diabetes mellitus with diabetic mononeuropathy; I10 Essential (primary) hypertension; E83.42 Hypomagnesemia; D51.0 Vitamin B12 deficiency anemia due to intrinsic factor deficiency
CPT/HCPCS: 36415; 80053; 80061; 82306; 82607; 82746; 83036; 83735; 84153; 84439; 84443; 85025

== ENCOUNTER → 2023-11-30 | Outpatient (CLI) | payer OTHER | END | disposition home or self-care (01) | LOC: RAD 08:03 | PROVIDERS: ATTEND Nurse Practitioner Family | DX: R16.1 Splenomegaly, not elsewhere classified (principal); D73.89 Other diseases of spleen; R94.5 Abnormal results of liver function studies | CPT/HCPCS: 76705 ==

== ENCOUNTER → 2024-05-30 | Outpatient (CLI) | payer OTHER ==
[2024-05-30 15:30] LABS: BASOPHIL % 0.2 % (0.2-1.2); EOSINOPHIL # 0.1 10^3/uL (0.0-0.2); EOSINOPHIL % 1.6 % (0.0-5.0); HEMATOCRIT(ML) 41.9 % (37.0-53.0); HEMOGLOBIN 13.6 g/dL (13.9-16.3); LYMPHOCYTES # 0.77 10^3/uL1 (1.0-4.8); LYMPHOCYTES % 17.7 % (24.0-44.0); MEAN CORP HGB 28.9 pg (26-34); MEAN CORP HGB CONCENTRATION 32.5 g/dL (33-36.5); MEAN CORP VOLUME 89.1 fL (78-100); MONOCYTES # 0.3 10^3/uL (0.3-0.8); MONOCYTES % 5.8 % (5.0-12.0); NEUTROPHIL # 3.2 10^3/uL (1.8-7.7); NEUTROPHILS % 74.5 % (41.0-85.0); PLATELET COUNT 154 10^3/uL (150-400); RED CELL DISTRIBUTION WIDTH 13.1 % (11.5-14.5); WHITE BLOOD CELL 4.3 10^3/uL (4.5-11.0)
[2024-05-30 15:43] LABS: +ADD MANUAL DIFF(NO CHRG) NO
[2024-05-30 15:55] LABS: ALBUMIN(ML) 3.9 g/dL (3.4-5.0); ALBUMIN/GLOBULIN RATIO 1.054; ANION GAP 13.2; BUN/CREATININE RATIO 15.78 (10.0-20.0); CALCIUM 8.9 mg/dL (8.4-10.5); CREATININE SERUM 1.33 mg/dL (0.59-1.40); EST GFR, NON-AA 54.5 (>/=60); LDL/HDL RATIO 1.2; POTASSIUM 4.2 mmol/L (3.6-5.2)
== END | disposition home or self-care (01) ==
LOC: NPLAB 15:09
PROVIDERS: ATTEND Nurse Practitioner Family
DX: I10 Essential (primary) hypertension (principal); E11.9 Type 2 diabetes mellitus without complications; C61 Malignant neoplasm of prostate
CPT/HCPCS: 36415; 80053; 80061; 83036; 84153; 84439; 84443; 85025

== ENCOUNTER 2024-09-20 07:05 | Day surgery (SDC) | payer OTHER ==
[2024-09-17] MEDS: MOVIPREP POWDER PACKET PO STA (16:11)
[2024-09-17 16:17] VITALS: BP 144/76; PULSE 74; RESP 18; TEMP 98.3; O2SAT 98
[2024-09-17 16:49] LABS: BASOPHIL % 0.5 % (0.2-1.2); EOSINOPHIL # 0.1 10^3/uL (0.0-0.2); EOSINOPHIL % 2.9 % (0.0-5.0); HEMATOCRIT(ML) 41.7 % (37.0-53.0); HEMOGLOBIN 13.7 g/dL (13.9-16.3); LYMPHOCYTES # 0.77 10^3/uL1 (1.0-4.8); LYMPHOCYTES % 20.4 % (24.0-44.0); MEAN CORP HGB 28.9 pg (26-34); MEAN CORP HGB CONCENTRATION 32.9 g/dL (33-36.5); MONOCYTES # 0.3 10^3/uL (0.3-0.8); MONOCYTES % 7.7 % (5.0-12.0); NEUTROPHIL # 2.6 10^3/uL (1.8-7.7); NEUTROPHILS % 68.5 % (41.0-85.0); PLATELET COUNT 150 10^3/uL (150-400); RED BLOOD CELL 4.74 10^6/uL (4.50-5.90); RED CELL DISTRIBUTION WIDTH 13.1 % (11.5-14.5); WHITE BLOOD CELL 3.8 10^3/uL (4.5-11.0)
[2024-09-17 16:54] LABS: +ADD MANUAL DIFF(NO CHRG) NO
[2024-09-17 17:18] LABS: ALANINE AMINOTRANSFERASE(ML) 42 U/L (12-78); ALBUMIN(ML) 3.8 g/dL (3.4-5.0); ALKALINE PHOSPHATASE 126 U/L (50-136); ANION GAP 13.2; ASPARTATE AMINO TRANSFERASE 28 U/L (0-35); CALCIUM 9.1 mg/dL (8.4-10.5); CARBON DIOXIDE 27.7 mmol/L (20.0-32); CREATININE SERUM 1.16 mg/dL (0.59-1.40); EST GFR, NON-AA 63.8 (>/=60); GLUCOSE 99 mg/dL (74-106); POTASSIUM 3.9 mmol/L (3.6-5.2); SODIUM 139 mmol/L (132-145)
[2024-09-17 18:49] LABS: INR 1.1
[~2024-09-20] VITALS: Ht 172.7 cm; Wt 95.3 kg
[2024-09-20] VITALS (7 sets, daily range): BP systolic 89–131; BP diastolic 54–78; PULSE 67–79; RESP 16–18; TEMP 96.2–96.4; O2SAT 92–96
[~2024-09-20 07:05] MED LIST: ATOR20TA PO; BETA15CR5 TP; CHLO15MO MM; CYCL5TAB4 PO; DICL75TA2 PO; EMPA25TA PO; HYDR200T65 PO; METF10007 PO; NS 1000ML 1,000 ML ONE; TADA5TAB PO; TIRZ12.5 SQ
[2024-09-20] MEDS: NS 1000ML 1,000 ML IV SCH (07:25)
[2024-09-20] MEDS ORDERED: WATER ONE (07:28)
[2024-09-20] MEDS ORDERED: DIPRIVAN IV ONE ×2 (07:53→08:57)
[2024-09-20] MEDS ORDERED: XYLOCAINE 2% 5ML VIAL ONE (07:53)
== END 2024-09-20 10:13 | disposition home or self-care (01) ==
LOC: SDC 07:05
PROVIDERS: ATTEND Surgery
DX: R19.5 Other fecal abnormalities (principal); K25.9 Gastric ulcer, unspecified as acute or chronic, without hemorrhage or perforation; K29.90 Gastroduodenitis, unspecified, without bleeding; K44.9 Diaphragmatic hernia without obstruction or gangrene; K29.50 Unspecified chronic gastritis without bleeding; K63.5 Polyp of colon; E11.9 Type 2 diabetes mellitus without complications; Z98.890 Other specified postprocedural states; Z79.899 Other long term (current) drug therapy
CPT/HCPCS: 84153; 80053; 36415; 85025; 85730; 85610; 45380; 43239; J7030; A4217; J2704 ×2; J2003

== ENCOUNTER → 2024-11-25 | Outpatient (CLI) | payer OTHER ==
[~2024-11-25] MED LIST changes: -NS 1000ML 1,000 ML ONE
[2024-11-25 10:09] LABS: BASOPHIL % 0.7 % (0.2-1.2); EOSINOPHIL # 0.1 10^3/uL (0.0-0.2); EOSINOPHIL % 3.1 % (0.0-5.0); HEMATOCRIT(ML) 44.1 % (37.0-53.0); HEMOGLOBIN 14.3 g/dL (13.9-16.3); LYMPHOCYTES # 0.86 10^3/uL1 (1.0-4.8); LYMPHOCYTES % 20.2 % (24.0-44.0); MEAN CORP HGB 28.5 pg (26-34); MEAN CORP HGB CONCENTRATION 32.4 g/dL (33-36.5); MEAN CORP VOLUME 87.8 fL (78-100); MONOCYTES # 0.3 10^3/uL (0.3-0.8); NEUTROPHIL # 2.9 10^3/uL (1.8-7.7); PLATELET COUNT 165 10^3/uL (150-400); RED BLOOD CELL 5.02 10^6/uL (4.50-5.90); RED CELL DISTRIBUTION WIDTH 13.2 % (11.5-14.5); WHITE BLOOD CELL 4.3 10^3/uL (4.5-11.0)
[2024-11-25 10:35] LABS: ALBUMIN/GLOBULIN RATIO 1.111; ANION GAP 10.5; BUN/CREATININE RATIO 9.56 (10.0-20.0); CALCIUM 9.5 mg/dL (8.4-10.5); CARBON DIOXIDE 30.7 mmol/L (20.0-32); CREATININE SERUM 1.15 mg/dL (0.59-1.40); EST GFR, NON-AA 64.4 (>/=60); LDL/HDL RATIO 2.7; POTASSIUM 4.2 mmol/L (3.6-5.2)
[2024-11-25 11:15] LABS: +ADD MANUAL DIFF(NO CHRG) NO
== END | disposition home or self-care (01) ==
LOC: LAB 09:47
PROVIDERS: ATTEND Nurse Practitioner Family
DX: C61 Malignant neoplasm of prostate (principal); E11.41 Type 2 diabetes mellitus with diabetic mononeuropathy; I10 Essential (primary) hypertension; Z86.16 Personal history of COVID-19
CPT/HCPCS: 36415; 80053; 80061; 83036; 84153; 84439; 84443; 85025; 86769

== ENCOUNTER → 2025-05-20 | Outpatient (CLI) | payer OTHER ==
[2025-05-20 12:09] LABS: BASOPHIL # 0.0 10^3/uL (0.0-0.1); BASOPHIL % 0.9 % (0.2-1.2); EOSINOPHIL # 0.1 10^3/uL (0.0-0.2); EOSINOPHIL % 2.0 % (0.0-5.0); HEMATOCRIT(ML) 43.2 % (37.0-53.0); IG % 0.20 % (0.00-0.50); LYMPHOCYTES # 0.95 10^3/uL1 (1.0-4.8); LYMPHOCYTES % 20.7 % (24.0-44.0); MEAN CORP HGB 28.6 pg (26-34); MEAN CORP HGB CONCENTRATION 32.4 g/dL (33-36.5); MEAN CORP VOLUME 88.2 fL (78-100); MONOCYTES # 0.4 10^3/uL (0.3-0.8); MONOCYTES % 7.9 % (5.0-12.0); NEUTROPHIL # 3.1 10^3/uL (1.8-7.7); NEUTROPHILS % 68.3 % (41.0-85.0); RED BLOOD CELL 4.90 10^6/uL (4.50-5.90); RED CELL DISTRIBUTION WIDTH 13.4 % (11.5-14.5); WHITE BLOOD CELL 4.6 10^3/uL (4.5-11.0)
[2025-05-20 12:37] LABS: ALANINE AMINOTRANSFERASE(ML) 36.0 U/L (12-78); ALBUMIN(ML) 4.2 g/dL (3.4-5.0); CREATININE SERUM 1.04 mg/dL (0.59-1.40); EST GFR, NON-AA 72.1 (>/=60); LDL/HDL RATIO 3.3
== END | disposition home or self-care (01) ==
LOC: LAB 11:53
PROVIDERS: ATTEND Nurse Practitioner Family
DX: C61 Malignant neoplasm of prostate (principal); I10 Essential (primary) hypertension; E11.65 Type 2 diabetes mellitus with hyperglycemia
CPT/HCPCS: 36415; 80053; 80061; 83036; 84153; 84439; 84443; 85025

== ENCOUNTER → 2025-09-26 | Outpatient (CLI) | payer OTHER ==
[2025-09-26 11:58] LABS: BASOPHIL # 0.0 10^3/uL (0.0-0.1); BASOPHIL % 0.7 % (0.2-1.2); EOSINOPHIL # 0.1 10^3/uL (0.0-0.2); EOSINOPHIL % 1.7 % (0.0-5.0); HEMATOCRIT(ML) 39.6 % (37.0-53.0); IG % 0.00 % (0.00-0.50); LYMPHOCYTES # 0.79 10^3/uL1 (1.0-4.8); LYMPHOCYTES % 19.0 % (24.0-44.0); MEAN CORP HGB 27.9 pg (26-34); MEAN CORP HGB CONCENTRATION 32.6 g/dL (33-36.5); MEAN CORP VOLUME 85.7 fL (78-100); MONOCYTES # 0.3 10^3/uL (0.3-0.8); MONOCYTES % 8.2 % (5.0-12.0); NEUTROPHIL # 2.9 10^3/uL (1.8-7.7); NEUTROPHILS % 70.4 % (41.0-85.0); RED BLOOD CELL 4.62 10^6/uL (4.50-5.90); RED CELL DISTRIBUTION WIDTH 13.5 % (11.5-14.5); WHITE BLOOD CELL 4.2 10^3/uL (4.5-11.0)
[2025-09-26 12:18] LABS: ALANINE AMINOTRANSFERASE(ML) 34.0 U/L (12-78); ALBUMIN(ML) 4.1 g/dL (3.4-5.0); CREATININE SERUM 1.23 mg/dL (0.59-1.40); EST GFR, NON-AA 59.4 (>/=60); LDL/HDL RATIO 4.1
== END | disposition home or self-care (01) ==
LOC: NPLAB 10:16
PROVIDERS: ATTEND Nurse Practitioner Family
DX: C61 Malignant neoplasm of prostate (principal); E11.65 Type 2 diabetes mellitus with hyperglycemia; I10 Essential (primary) hypertension
CPT/HCPCS: 36415; 80053; 80061; 83036; 84153; 84439; 84443; 85025